=== PATIENT | male | born 1960 | race Two or more races ===

== ENCOUNTER 2017-02-01 06:29 | Observation (INO) | payer OTHER ==
[2017-02-01] MEDS ORDERED: NS 0.9% 1000 ML* 1,000 ML IV ONE ×2 (07:14→08:03)
[2017-02-01] MEDS ORDERED: Ondansetron INJ* 2 MG/ML VIAL IV ONE (07:17)
[2017-02-01 07:19] LABS: Hematocrit 44 % (42-52); Hemoglobin 14.8 g/dl (14.0-18.0); Mean Corpuscular HGB Conc 33 g/dl (31-36); Mean Corpuscular Hemoglobin 31 pg (27-31); Mean Corpuscular Volume 92 fL (80-94); Mean Platelet Volume 8 um3 (7.4-10.4); Red Blood Count 4.85 10^6/ul (4.0-5.4); Red Cell Distribution Width 14 % (10.5-15); White Blood Count 8.2 10^3/ul (3.5-10.8)
[2017-02-01] MEDS: Nitroglycerin TAB 0.4 MG* 0.4 MG TAB SL ONE ×3 (07:22→07:48)
[2017-02-01] MEDS ORDERED: Morphine INJ* 2 MG/ML 1 ML SYRINGE IV ONE (07:25)
[2017-02-01] MEDS ORDERED: Morphine INJ* 2 MG/ML 1 ML SYRINGE ONE (07:26)
[2017-02-01 07:31] LABS: Albumin 4.4 g/dL (3.2-5.2); BUN/Creatinine Ratio 19.4 (8-20); EGFR African American 108.1 (>60); Globulin 3.6 g/dL (2-4); Potassium 3.4 mmol/L (3.5-5.0); Total Bilirubin 0.6 mg/dL (0.2-1.0)
[2017-02-01] MEDS ORDERED: Aspirin Low Dose CHEW TAB* 81 MG PO ONE (07:31)
[2017-02-01 07:41] LABS: TSH (Thyroid Stimulating Horm) 1.65 mcIU/mL (0.34-5.60)
[2017-02-01] MEDS ORDERED: Morphine INJ* 4 MG/ML 1 ML SYRINGE IV ONE (08:00)
[2017-02-01] MEDS ORDERED: Iohexol 350* (CONTRAST) 500 ML MDV IV ONE (08:07)
--- NOTE | 2017-02-01 08:24 | RAD ---
INDICATION: Chest pain. COMPARISON: Comparison is made with a prior study from October 23 2011. TECHNIQUE: A portable view of the chest was obtained. FINDINGS: Cardiac and mediastinal contours appear to be within normal limits. The lungs are underinflated and clear. No pleural effusion is seen. IMPRESSION: NO EVIDENCE FOR ACUTE DISEASE.
[2017-02-01] MEDS ORDERED: Morphine INJ* 2 MG/ML 1 ML SYRINGE IV PRN (08:46)
[2017-02-01] MEDS ORDERED: Al Hydrox/Mg Hydrox/Simet LIQ* 30 ML UDC PO PRN (08:58)
[2017-02-01] MEDS ORDERED: amLODIPine TAB* 5 MG PO SCH (09:00)
[2017-02-01] MEDS ORDERED: Enoxaparin(*) 40 MG/0.4 ML SYR SUBCUT SCH (09:00)
[2017-02-01] MEDS ORDERED: Losartan TAB* 25 MG PO SCH (09:00)
[2017-02-01] MEDS ORDERED: Omeprazole CAP* 20 MG PO SCH (09:00)
[2017-02-01] MEDS ORDERED: Ondansetron INJ* 2 MG/ML VIAL IV SCH (09:00)
[2017-02-01] MEDS ORDERED: Atorvastatin* 10 MG TAB PO SCH (09:00)
--- NOTE | 2017-02-01 09:05 | RAD ---
INDICATION: Chest pain. Evaluate for aortic dissection. COMPARISON: Chest x-ray February 01, 2017 TECHNIQUE: Axial source images were obtained from the thoracic inlet to the hemidiaphragms following administration of [address] angiographic technique was utilized. Coronal and sagittal reconstructed images were acquired. CHEST FINDINGS: Neck/thyroid: The visualized neck to include the thyroid appear normal. Chest wall: There are no acute abnormalities of the bony thorax or chest wall. There is no supraclavicular, infraclavicular, or axillary lymphadenopathy. Lungs : There are no pulmonary parenchymal masses or infiltrates. The pulmonary interstitium appears normal. There are no endobronchial lesions. Cardiomediastinal structures: There is no CT evidence of acute pulmonary embolic disease. The heart is normal in size. There is no pericardial effusion. There is no evidence of aortic aneurysm or dissection. There is no mediastinal or hilar adenopathy. The esophagus appears normal. Pleura : There are no pleural-based masses or effusions. Other: Limited views the upper abdomen show hepatic steatosis.. IMPRESSION: NO CT EVIDENCE OF AORTIC ANEURYSM OR DISSECTION. NO ACTIVE DISEASE OF THE CHEST.
[2017-02-01] MEDS ORDERED: Hydrochlorothiazide TAB* 25 MG PO SCH (09:30)
[2017-02-01] MEDS ORDERED: cloNIDine 0.3 MG PATCH* 0.3 MG/24 HR 7 DAY PATCH TRANSDERM SCH (09:30)
[2017-02-01] MEDS ORDERED: Ketorolac INJ* 15 MG/ML 1 ML VIAL IV PUSH ONE (10:33)
[2017-02-01 11:20] LABS: T4 6.87 mcg/mL (6.09-12.23)
[2017-02-01] MEDS: Ondansetron INJ* 2 MG/ML VIAL IV SCH ×2 (12:14→16:13)
--- NOTE | 2017-02-01 12:22 | HP ---
CC: Osman Martines MD HISTORY AND PHYSICAL/DISCHARGE SUMMARY: DATE OF ADMISSION: 02/01/17 PCP: Osman Martines MD CHIEF COMPLAINT: Chest pain. HISTORY OF PRESENT ILLNESS: Mr. Holm is a 57-year-old male with past medical history of hypertension, hyperlipidemia, and obesity, who presents to the hospital with chest pain. The patient states he was in his usual state of health yesterday, had some steak and rice for dinner, went to bed without any issues, woke up at 5:30 this morning with a sharp pressure-like chest pain on the left side of the chest. He states it radiated to the middle of the chest and the throat. He was concerned and thus ended up calling EMS. He took his car and drove himself to the emergency department. He did not take anything at home for it. Here in the ED, the patient received full dose aspirin, morphine, and nitroglycerin. After these interventions, he states his pain seemed to be a little bit better down from a 9/10 to a 5-6/10. Here in the hospital, he had some nausea and vomiting, has been feeling some diaphoresis too. He states the chest pain improved a bit with throwing up. He feels like it is a bit worse with deep breathing. It is not reproducible on palpation. He is not sure if it is any worse with exertion. Denies any history of a pain like this. He states he has had indigestion in the past with black beans; however, it does not feel like this. Denies any recent fever, chills, abdominal pain. He has been taking good p.o. No diarrhea, constipation, dysuria, hematuria, hematochezia, or melena. PAST MEDICAL HISTORY: Hypertension, hyperlipidemia, obesity. PAST SURGICAL HISTORY: None. HOME MEDICATIONS: 1. Losartan/HCTZ 100-12.5 one tablet by mouth daily. 2. Atenolol 50 mg by mouth daily. 3. Atorvastatin 10 mg by mouth daily. 4. Amlodipine 10 mg by mouth daily. 5. Clonidine patch 0.3 mg transdermal weekly. ALLERGIES: The patient reports no known drug allergies. FAMILY HISTORY: Significant for father with kidney disease. SOCIAL HISTORY: The patient states he used to smoke 1 to 2 cigarettes a day, but quit 15 years ago, will drink up to 3-4 shots a night on the weekends. Occasionally will have a beer during the week. Denies any illicit drug use. REVIEW OF SYSTEMS: A 12-point review of systems is negative except for that as noted in the HPI. PHYSICAL EXAMINATION GENERAL: The patient is a middle-aged man, lying in bed, in mild distress. VITAL SIGNS ON ADMISSION: Temperature 97.3, heart rate of 66, respiratory rate of 16, O2 saturation 100% on room air, blood pressure 172/102, which has improved to 127/72. HEENT: Head normocephalic, atraumatic. Eyes: Pupils are equal, round, and reactive to light and accommodation. Anicteric sclerae. ENT: Moist mucous membranes. No oropharyngeal erythema. LUNGS: Clear to auscultation bilaterally. No wheezes, rales, or rhonchi. CARDIOVASCULAR: Regular rate and rhythm. S1, S2 present. No murmurs, gallops , or rubs. ABDOMEN: Soft, nontender, nondistended. Bowel sounds positive. EXTREMITIES: No cyanosis, clubbing, or edema. NEUROLOGIC: The patient is alert and oriented x3. No focal neurological deficits. SKIN: Warm, dry, and well perfused. DIAGNOSTIC STUDIES/LAB DATA: White blood cell count of 8.2, hematocrit of 44, platelets of 226. INR of 0.89. D-dimer is pending. Sodium 138, potassium 3.4 , chloride of 102, carbon dioxide 25, BUN of 18, creatinine 0.93, glucose of 117 , lactic acid of 1.3. LFTs within normal limits. CK and CK-MB within normal limits. Troponin of 0.00. TSH of 1.65. EKG, personally reviewed, shows normal sinus rhythm with some left ventricular hypertrophy. Chest x-ray, personally reviewed, shows no acute disease. CTA of the chest was done, no significant findings on my read, but final read is pending. ASSESSMENT AND PLAN: Chest pain in a 57-year-old male with past medical history of hypertension, hyperlipidemia, obesity. 1. Chest pain. Some concern for cardiac etiology with the patient's risk factors. Initial troponin was negative. We have another one drawn in less than an hour. If this remains negative, we will proceed with nuclear cardiac stress test. EKG showed no significant changes indicating ischemia. CTA of the chest is pending as well as a D-dimer. PE is certainly a possibility; however, the patient is not hypoxic or not particularly tachypneic. Could be GI related, we will write the patient for a PPI and some Maalox. 2. Hypertension. Continue the patient's home cardiac medications. 3. Hyperlipidemia. Continue the patient's home statin. 4. DVT prophylaxis: Lovenox subcu. 5. Code status: The patient is a full code. TIME SPENT: Total time spent on this admission was 40 minutes with over half the time spent [id number] with the patient counseling and coordinating care. ADDENDUM: Patient was monitored over the course of the day. Continued to have chest pain with normal troponins and negative stress test. Seemed to respond well to Toradol with improvement in his pain. Likely MSK in origin, was discharged home with rx for Ibuprofen in addition to home medications. F/U with PCP as an outpatient. [id number]/CPS #: [id number] MTDD
[2017-02-01 13:29] LABS: Urine Bacteria Absent (Absent); Urine Bilirubin Negative (Negative); Urine Glucose Negative (Negative); Urine Nitrite Negative (Negative)
--- NOTE | 2017-02-01 15:54 | ED ---
Mcihael Vargas Billy, scribed for Suman Francois MD on 02/01/17 at 0717 . HPI Chest Pain - HPI Summary HPI Summary: Patient is a 57 year-old male coming to [facility] for evaluation of sudden onset left-sided chest pain when he woke up this morning at 0530. Pain is non- radiating. He also reports shortness of breath, nausea, diaphoresis. No previous cardiac history other than hypertension and hypercholesterolemia ( controlled by medication). No significant family history of CT in family members at this age. - History of Current Complaint Chief Complaint: EDChestPainROMI Time Seen by Provider: 02/01/17 07:10 Hx Obtained From: Patient Onset/Duration: Started Hours Ago Time of Onset: 05:30 Timing: Constant Initial Severity: Moderate Current Severity: Moderate Pain Intensity: 9 Pain Scale Used: 0-10 Numeric Chest Pain Location: Left Anterior Chest Pain Radiates: No Associated Signs and Symptoms: Positive: Chest Pain, Shortness of Breath, Diaphoresis, Nausea - Allergy/Home Medications Allergies/Adverse Reactions: Allergies Allergy/AdvReac Type Severity Reaction Status Date / Time No Known Allergies Allergy Verified 02/01/17 06:47 Home Medications: Home Medications Amlodipine Besylate [Norvasc 10 mg tab] 10 mg PO DAILY 02/01/17 [History Confirmed 02/01/17] Atorvastatin* [Lipitor 10 MG*] 10 mg PO DAILY 02/01/17 [History Confirmed ] Losartan Potassium & Hydrochlo [Hyzaar 100/12.5 mg] 1 tab PO DAILY 02/01/17 [ History Confirmed 02/01/17] cloNIDine 0.3 MG PATCH* [Zwefpdqp-Wis-1 0.3 mg Patch*] 1 patch TRANSDERM WEEKLY 02/01/17 [History Confirmed 02/01/17] PMH/Surg Hx/FS Hx/Imm Hx Endocrine/Hematology History: Denies: Hx Diabetes, Hx Thyroid Disease Cardiovascular History: Reports: Hx Hypercholesterolemia, Hx Hypertension Respiratory History: Denies: Hx Asthma, Hx Chronic Obstructive Pulmonary Disease (COPD) GI History: Denies: Hx Ulcer - Immunization History Date of Tetanus Vaccine: utd Date of Influenza Vaccine: none Infectious Disease History: No Infectious Disease History: Denies: Hx Hepatitis, Hx Human Immunodeficiency Virus (HIV), Traveled Outside the [place] in Last 30 Days - Family History Known Family History: Positive: Hypertension Negative: Cardiac Disease - Social History Alcohol Use: Weekly Alcohol Amount: 2-3 Substance Use Type: Reports: None Smoking Status (MU): Former Smoker Review of Systems Positive: Skin Diaphoresis Positive: Chest Pain Positive: Shortness Of Breath Positive: Nausea All Other Systems Reviewed And Are Negative: Yes Physical Exam - Summary Physical Exam Summary: VITAL SIGNS: Reviewed. GENERAL: Patient is a well developed and nourished male who is clammy and diaphoretic. Patient is not in any acute respiratory distress. HEAD AND FACE: No signs of trauma. No ecchymosis, hematomas or skull depressions. No sinus tenderness. EYES: PERRLA, EOMI x 2, No injected conjunctiva, no nystagmus. EARS: Hearing grossly intact. Ear canals and tympanic membranes are within normal limits. MOUTH: Oropharynx within normal limits. NECK: Supple, trachea is midline, no adenopathy, no JVD, no carotid bruit, no c- spine tenderness, neck with full ROM. CHEST: Symmetric, no tenderness at palpation LUNGS: Clear to auscultation bilaterally. No wheezing or crackles. CVS: Regular rate and rhythm, S1 and S2 present, no murmurs or gallops appreciated. ABDOMEN: Soft, non-tender. No signs of distention. No rebound no guarding, and no masses palpated. Bowel sounds are normal. EXTREMITIES: FROM in all major joints, no edema, no cyanosis or clubbing. NEURO: Alert and oriented x 3. No acute neurological deficits. Speech is normal and follows commands. SKIN: Dry and warm Triage Information Reviewed: Yes Vital Signs On Initial Exam: Initial Vitals Temp Pulse Resp BP Pulse Ox 97.3 F 66 16 175/102 100 02/01/17 06:30 02/01/17 06:30 02/01/17 06:30 02/01/17 06:30 02/01/17 06:30 Vital Signs Reviewed: Yes - Olar Coma Scale Coma Scale Total: 15 Diagnostics - Vital Signs Vital Signs Temp Pulse Resp BP Pulse Ox 02/01/17 07:13 100 02/01/17 06:43 60 99 02/01/17 06:42 174/98 02/01/17 06:41 98.5 F 56 16 174/98 100 02/01/17 06:30 97.3 F 66 16 175/102 100 - Laboratory Result Diagrams: 02/01/17 06:45 02/01/17 06:45 Lab Statement: Any lab studies that have been ordered have been reviewed, and results considered in the medical decision making process. - Radiology CXR Xray Interpretation: No Acute Changes Radiology Interpretation Completed By: Radiologist - CT CTA chest CT Interpretation Completed By: Radiologist - NO CT EVIDENCE OF AORTIC ANEURYSM OR DISSECTION. NO ACTIVE DISEASE OF THE CHEST. - EKG 0716 EKG Interpretation: NSR 62 bpm, no STEMI 0642 EKG Interpretation: Sinus bradycardia 58 bpm, no STEMI Re-Evaluation - Re-Evaluation First Eval Re-Evaluation Time: 08:00 Change: Unchanged Comment: The patient is still in pain after morphine. Chest Pain Course/Dx - Course Assessment/Plan: Patient is a 57 year-old male coming to [facility] for evaluation of sudden onset left-sided chest pain when he woke up this morning at 0530. Pain is non-radiating. He also reports shortness of breath, nausea, diaphoresis. No previous cardiac history other than hypertension and hypercholesterolemia (controlled by medication). No significant family history of CT in family members at this age. Labs WNL except for potassium of 3.4 and glucose of 117. Troponin is 0.00. In the ED course, the patient was given ASA, NTG, and morphine for the chest pain. EKG shows no ST elevations. However, I am very concerned for acute coronary syndrome. The patient was hypotensive for which he was given IV fluids. The patient reported that the pain is radiating into his back and is uncomfortable despite the morphine. Therefore, I ordered CTA chest to rule out dissection. The CTA chest shows no CT evidence of aortic aneurysm or dissection. At this point, I discussed my physical exam and lab findings with Dr. Snell who accepted the patient for admission. He is hemodynamically stable, A&Ox3. - Chest Pain Differential Diagnosis/HQI/PQRI: Acute CT, ACS, Angina, Aortic Aneurysm, CHF, Chest Wall, GI Disease - Diagnoses Provider Diagnoses: chest pain r/o acute coronary syndrome - Provider Notifications Discussed Care Of Patient With: Dr. Snell (hospitalist) at 0814: accepts admission. Discharge - Discharge Plan Condition: Stable Disposition: ADMITTED TO [facility] The documentation as recorded by the Michael larson Billy accurately reflects the service I personally performed and the decisions made by me, Suman Francois MD.
[2017-02-01 16:03] VITALS: BP 150/95
--- NOTE | 2017-02-01 16:14 | RAD ---
Edited for charges. INDICATION: Chest pain COMPARISON: None TECHNIQUE: A single day SPECT protocol was utilized. Rest images were acquired following the intravenous injection of 10.7 millicuries of technetium 99m tetrofosmin. Exercise stress images were acquired following the intravenous administration of 25.7 millicuries of technetium 99m tetrofosmin. The patient was exercised to a peak heart rate of 144 which is 88 of age predicted maximum. FINDINGS: There are no defects of the stress-induced or fixed nature. There is probable mild apical thinning. The cardiac chamber size is normal. There are no wall motion abnormalities. The ejection fraction is calculated at 67 percent during stress. IMPRESSION: SUSPECT MILD APICAL THINNING, OTHERWISE NEGATIVE. ASSESSMENT: LOW-RISK Based on imaging criteria from ACC/AHA 2002 Guideline Update for the Management of Patients With Chronic Stable Angina Table 23. Noninvasive Risk Stratification. MTDD
[2017-02-02] MEDS ORDERED: Aspirin EC Low Dose* 81 MG TAB.EC PO SCH (09:00)
[2017-02-02] MEDS ORDERED: Atenolol TAB* 50 MG PO SCH (09:00)
== END 2017-02-01 16:55 | disposition home or self-care (01) ==
LOC: ED 06:29 → MEDTELE 08:17
PROVIDERS: ADMIT Hospitalist; ATTEND Hospitalist
DX: R07.9 Chest pain, unspecified (principal); I10 Essential (primary) hypertension; E78.5 Hyperlipidemia, unspecified; E66.9 Obesity, unspecified; R94.31 Abnormal electrocardiogram [ECG] [EKG]; R06.02 Shortness of breath; Z79.899 Other long term (current) drug therapy; Z87.891 Personal history of nicotine dependence
CPT/HCPCS: 36415; 71010; 71275; 78452; 80053; 81003; 81015; 82550; 82553; 83605; 83735; 83874; 83880; 84436; 84443; 84484; 85025; 85379; 85610; 85730; 93005; 93017; 96361; 96372; 96374; 96375; 96376; 99283; A9270-GY; A9502; G0378; J1650; J1885; J2270; J2405; Q9967

== ENCOUNTER 2017-10-01 10:30 | Day surgery (SDC) | payer OTHER ==
[~2017-10-01 10:30] MED LIST: Acetaminophen TAB* 325 MG PO PRN; Buffered Lidocaine 0.9% SYRIN* 5 ML/SYR SYRINGE INTRADERM ONE
[2017-10-01] MEDS ORDERED: Midazolam* 1 MG/ML 2 ML VIAL (2 MG) ONE (12:11)
[2017-10-01] MEDS ORDERED: Lidocaine 1% MPF* 2 ML VIAL ONE (12:14)
[2017-10-01] MEDS ORDERED: Ketorolac 0.5% OPHTH (NF) 0.5 % 5 ML BTL ONE (12:14)
[2017-10-01] MEDS ORDERED: Tropicamide 1% OPTH.SOL* BTL ONE (12:14)
[2017-10-01] MEDS ORDERED: Neomycin/Polymy/Dex OPHTH.OIN* 3.5 GM ONE (12:14)
[2017-10-01] MEDS ORDERED: Phenylephrine 2.5% OPTH.SOL* 2 ML BTL ONE (12:14)
[2017-10-01] MEDS ORDERED: Tetracaine 0.5% OPTH.SOL 4 ML* 1 DROP BTL ONE (12:14)
[2017-10-01] MEDS ORDERED: Cyclopentolate 1% OPTH.SOL* 2 ML BTL ONE (12:14)
[2017-10-01 12:38] VITALS: BP 144/94
--- NOTE | 2017-10-01 16:48 | OP ---
DATE OF OPERATION/DATE OF DICTATION: 10/01/2017 - [facility] DATE OF : 1960. SURGEON: Dr. Errol Chin. SENIOR FRONT END WEB DEVELOPER: None. ANESTHESIA: Topical with intravenous sedation. PRE-OP DIAGNOSIS: Cataract, left eye. POST-OP DIAGNOSIS: Cataract, left eye. OPERATIVE PROCEDURE: Phacoemulsification and cataract extraction with posterior chamber intraocular lens implant, left eye. COMPLICATIONS: None. BLOOD LOSS: None. DESCRIPTION OF PROCEDURE: The patient was brought to the operating room and received a small amount of intravenous sedation. A drop of Tetracaine was placed in his left eye. He was prepped and draped in the usual sterile fashion for ophthalmic surgery and attention was directed to the left eye where a speculum was placed. A paracentesis was created at the 5 o'clock position and 0.1 cc of 1 percent preservative-free Lidocaine was injected into the anterior chamber followed by DisCoVisc. The eye was digitally stabilized while a 2.75 mm keratome was used to create a triplanar clear corneal incision at the 3 o'clock position. A continuous curvilinear capsulorrhexis was created with a cystotome and Utrata forceps. BSS on a cannula was used to hydrodissect the lens from the capsule. Phacoemulsification was performed in a [id number] technique to create four fragments which were removed. Residual cortical material was removed with irrigation and aspiration. DisCoVisc was used to inflate the capsular bag and an AUOOTO 21.5 diopter lens was folded and inserted into the capsular bag. DisCoVisc was removed using irrigation and aspiration. BSS on a cannula was used to hydrate the corneal stroma and seal the wound. At the end of the case the pupil was round and the lens was centered. The eye was of normal pressure and the wound was water tight. The speculum was removed and topical Maxitrol ointment was placed on the surface of the eye. The eye was closed, patched and shielded and the patient was sent to the recovery room in stable condition with post operative instructions and follow-up appointment given. [id number]/CPS #: [id number] MTDD
== END 2017-10-01 12:45 | disposition home or self-care (01) ==
LOC: OREAST 10:30
PROVIDERS: ATTEND Ophthalmology
DX: H25.032 Anterior subcapsular polar age-related cataract, left eye (principal); I10 Essential (primary) hypertension; E78.00 Pure hypercholesterolemia, unspecified
CPT/HCPCS: A9270-GY; J2250; V2632

== ENCOUNTER 2017-10-08 08:15 | Day surgery (SDC) | payer OTHER ==
[2017-10-08] MEDS ORDERED: Midazolam* 1 MG/ML 2 ML VIAL (2 MG) ONE (08:40)
[2017-10-08] MEDS ORDERED: fentaNYL* 50 MCG/ML 2 ML VIAL (100 MCG VIAL) ONE (08:40)
[2017-10-08 09:31] VITALS: BP 133/96
--- NOTE | 2017-10-08 09:42 | OP ---
DATE OF OPERATION/DATE OF DICTATION: 10/08/2017 - [facility] DATE OF : 1960. SURGEON: Dr. Errol Chin. MATRIX DRIER TENDER: None. ANESTHESIA: Topical with intravenous sedation. PRE-OP DIAGNOSIS: Cataract, right eye. POST-OP DIAGNOSIS: Cataract, right eye. OPERATIVE PROCEDURE: Phacoemulsification and cataract extraction with posterior chamber intraocular lens implant, right eye. COMPLICATIONS: None. BLOOD LOSS: None. DESCRIPTION OF PROCEDURE: The patient was brought to the operating room and received a small amount of intravenous sedation. A drop of Tetracaine was placed in his right eye. He was prepped and draped in the usual sterile fashion for ophthalmic surgery and attention was directed to the right eye where a speculum was placed. A paracentesis was created at the 11 o'clock position and 0.1 cc of 1 percent preservative-free Lidocaine was injected into the anterior chamber followed by DisCoVisc. The eye was digitally stabilized while a 2.75 mm keratome was used to create a triplanar clear corneal incision at the 9 o'clock position. A continuous curvilinear capsulorrhexis was created with a cystotome and Utrata forceps. BSS on a cannula was used to hydrodissect the lens from the capsule. Phacoemulsification was performed in a divide-and- conquer technique to create four fragments which were removed. Residual cortical material was removed with irrigation and aspiration. DisCoVisc was used to inflate the capsular bag and an AUOOTO 21.5 diopter lens was folded and inserted into the capsular bag. DisCoVisc was removed using irrigation and aspiration. BSS on a cannula was used to hydrate the corneal stroma and seal the wound. At the end of the case the pupil was round and the lens was centered. The eye was of normal pressure and the wound was water tight. The speculum was removed and topical Maxitrol ointment was placed on the surface of the eye. The eye was closed, patched and shielded and the patient was sent to the recovery room in stable condition with post operative instructions and follow-up appointment given. [id number]/CPS #: [id number] MTDD
[2017-10-08] MEDS ORDERED: Neomycin/Polymy/Dex OPHTH.OIN* 3.5 GM ONE (13:51)
[2017-10-08] MEDS ORDERED: Tetracaine 0.5% OPTH.SOL 4 ML* 1 DROP BTL ONE (13:51)
[2017-10-08] MEDS ORDERED: Lidocaine 1% MPF* 2 ML VIAL ONE (13:51)
[2017-10-08] MEDS ORDERED: Ketorolac 0.5% OPHTH (NF) 0.5 % 5 ML BTL ONE (13:51)
[2017-10-08] MEDS ORDERED: Cyclopentolate 1% OPTH.SOL* 2 ML BTL ONE (13:51)
[2017-10-08] MEDS ORDERED: Tropicamide 1% OPTH.SOL* BTL ONE (13:51)
[2017-10-08] MEDS ORDERED: Phenylephrine 2.5% OPTH.SOL* 2 ML BTL ONE (13:51)
== END 2017-10-08 09:35 | disposition home or self-care (01) ==
LOC: OREAST 08:15
PROVIDERS: ATTEND Ophthalmology
DX: H25.11 Age-related nuclear cataract, right eye (principal); I10 Essential (primary) hypertension; E78.5 Hyperlipidemia, unspecified; Z87.891 Personal history of nicotine dependence
CPT/HCPCS: A9270-GY; J2250; J3010; V2632

== ENCOUNTER 2018-02-22 11:04 | Emergency (ER) | payer OTHER ==
[2018-02-22 11:09] VITALS: BP 162/104
[2018-02-22] MEDS ORDERED: Ketorolac INJ* 60 MG/2 ML VIAL IM ONE (12:31)
--- NOTE | 2018-02-22 13:09 | RAD ---
INDICATION: Superior lateral left knee pain since an injury 2 days earlier COMPARISON: None TECHNIQUE: 5 view radiograph of the left knee. FINDINGS: Mild degenerative changes on the AP view include slight height loss of the medial compartment. On the lateral view there is a moderate size joint effusion. On the sunrise view the patella is displaced laterally relative to the femoral condyles and intercondylar groove. There is questionable lucency along the medial posterior margin of the patella. IMPRESSION: 1. Small to moderate suprapatellar joint effusion without definite acute bony abnormality. 2. 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 Please correlate to history and physical examination. If the patient's symptoms persist, follow-up imaging is recommended.
--- NOTE | 2018-02-22 14:21 | ED ---
Jose Vargas Julia, scribed for Suman Francois MD on 02/22/18 at 1149 . Lower Extremity - HPI Summary HPI Summary: This patient is a 58 year old M presenting to [facility] with a chief complaint of lateral left knee pain for the past two days after he heard a pop after missing a step. Patient is unable to ambulate without pain since. Pain is 6/10 in severity. - History of Current Complaint Chief Complaint: EDExtremityLower Stated Complaint: LT KNEE INJURY Time Seen by Provider: 02/22/18 11:32 Hx Obtained From: Patient Mechanism Of Injury: Twisted Onset of Pain: Immediate, Days Pain Intensity: 6 Pain Scale Used: 0-10 Numeric Timing: Constant Location: Is Discrete @ - left knee Associated Signs And Symptoms: Positive: Swelling Aggravating Factor(s): Ambulation Able to Bear Weight: Yes - Allergies/Home Medications Allergies/Adverse Reactions: Allergies Allergy/AdvReac Type Severity Reaction Status Date / Time No Known Allergies Allergy Verified 10/08/17 08:39 PMH/Surg Hx/FS Hx/Imm Hx Endocrine/Hematology History: Denies: Hx Diabetes, Hx Thyroid Disease Cardiovascular History: Reports: Hx Hypercholesterolemia, Hx Hypertension, Other Cardiovascular Problems/Disorders - HLD Denies: Hx Angina, Hx Coronary Artery Disease, Hx Myocardial Infarction, Hx Valvular Heart Disease Respiratory History: Denies: Hx Asthma, Hx Chronic Obstructive Pulmonary Disease (COPD), Hx Pulmonary Embolism, Hx Seasonal Allergies, Hx Sleep Apnea, Other Respiratory Problems/Disorders GI History: Reports: Hx Gastroesophageal Reflux Disease - possible Denies: Hx Ulcer, Other GI Disorders History: Denies: Hx Chronic Renal Failure, Hx Dialysis, Hx Kidney Stones, Other Problems/Disorders Musculoskeletal History: Denies: Hx Arthritis, Other Musculoskeletal History Sensory History: Reports: Hx Cataracts - bilateral cataracts Denies: Hx Contacts or Glasses, Hx Glaucoma, Hx Hearing Aid Opthamlomology History: Reports: Hx Cataracts - bilateral cataracts Denies: Hx Contacts or Glasses, Hx Glaucoma Neurological History: Denies: Hx Headaches, Hx Migraine, Hx Seizures, Hx Transient Ischemic Attacks (TIA), Other Neuro Impairments/Disorders Psychiatric History: Denies: Hx Anxiety, Hx Depression - Surgical History Hx Anesthesia Reactions: No - never had surgery - Immunization History Date of Tetanus Vaccine: utd Date of Influenza Vaccine: none Infectious Disease History: No Infectious Disease History: Denies: Hx Hepatitis, Hx Human Immunodeficiency Virus (HIV), Traveled Outside the [place] in Last 30 Days - Family History Known Family History: Positive: Hypertension Negative: Cardiac Disease - Social History Alcohol Use: Weekly Alcohol Amount: 2-3 Substance Use Type: Reports: None Smoking Status (MU): Former Smoker Review of Systems Positive: Myalgia, Edema All Other Systems Reviewed And Are Negative: Yes Physical Exam - Summary Physical Exam Summary: VITAL SIGNS: Reviewed. GENERAL: Patient is a well-developed and nourished male who is lying comfortable in the stretcher. Patient is not in any acute respiratory distress. HEAD AND FACE: No signs of trauma. No ecchymosis, hematomas or skull depressions. No sinus tenderness. EYES: PERRLA, EOMI x 2, No injected conjunctiva, no nystagmus. EARS: Hearing grossly intact. Ear canals and tympanic membranes are within normal limits. MOUTH: Oropharynx within normal limits. NECK: Supple, trachea is midline, no adenopathy, no JVD, no carotid bruit, no c- spine tenderness, neck with full ROM. CHEST: Symmetric, no tenderness at palpation LUNGS: Clear to auscultation bilaterally. No wheezing or crackles. CVS: Regular rate and rhythm, S1 and S2 present, no murmurs or gallops appreciated. ABDOMEN: Soft, non-tender. No signs of distention. No rebound no guarding, and no masses palpated. Bowel sounds are normal. EXTREMITIES: no cyanosis or clubbing. Left knee swelling and tenderness with decreased ROM due to pain NEURO: Alert and oriented x 3. No acute neurological deficits. Speech is normal and follows commands. SKIN: Dry and warm Triage Information Reviewed: Yes Vital Signs On Initial Exam: Initial Vitals Temp Pulse Resp BP Pulse Ox 98 F 67 14 162/104 100 02/22/18 11:07 02/22/18 11:07 02/22/18 11:07 02/22/18 11:07 02/22/18 11:07 Vital Signs Reviewed: Yes Diagnostics - Vital Signs Vital Signs Temp Pulse Resp BP Pulse Ox 02/22/18 11:07 98 F 67 14 162/104 100 - Laboratory Lab Statement: Any lab studies that have been ordered have been reviewed, and results considered in the medical decision making process. - Radiology L Knee XR Radiology Interpretation Completed By: Radiologist - 1. Small to moderate suprapatellar joint effusion without definite acute bony abnormality. 2. 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 Please correlate to history and physical examination. If the patient's symptoms persist, follow-up imaging is recommended. ED Physician has reviewed this report. Lower Extremity Course/Dx - Course Assessment/Plan: 58-year-old male with a chief complaint of having knee pain. Patient denies any history of trauma or heavy lifting. Patient reports that he felt a pop in the left knee consistent the patient is having pain and swelling. X-ray of left knee Impression: Is small to moderate suprapatellar joint effusion without definite acute bony abnormality. consistent with patellar tracking the symptoms. The patient will be placed in a knee immobilizer and discharged home with follow-up with orthopedics. Patient was given Toradol for the pain. I discussed all the findings and test results with the patient. Patient was instructed to return to the emergency room immediately if any of the symptoms return or worsens. Plan of care was discussed with the patient and understands and agrees. All questions were answered at patient satisfaction. There were no further complaints or concerns. Lung exam before discharge: CTA B /L. Good air exchange. No wheezing or crackles heard. CVS: S1 and S2 present. No murmurs appreciated. Patient is alert and oriented x 3. Patient is hemodynamically stable. Patient will be discharged home with follow up PCP in the next 2-3 days - Diagnoses Differential Diagnosis/HQI/PQRI: Positive: Bursitis, Contusion, Sprain, Strain, Tendonitis Provider Diagnoses: Knee pain Discharge - Sign-Out/Discharge Documenting (check all that apply): Discharge/Admit/Transfer - Discharge Plan Condition: Stable Disposition: HOME Prescriptions: Naproxen [Naproxen 500 mg tab] 500 mg PO BID #30 tablet Patient Education Materials: Knee Pain (ED) Referrals: Saima Rosales NP [Primary Care Provider] - 3 Days Additional Instructions: FOLLOW UP WITH YOUR PRIMARY CARE PROVIDER WITHIN ONE WEEK FOR HIGH BLOOD PRESSURE NOTED TODAY. RETURN TO THE EMERGENCY DEPARTMENT FOR ANY WORSENING OR NEW SYMPTOMS. - Billing Disposition and Condition Condition: STABLE Disposition: Home The documentation as recorded by the Jose larson Julia accurately reflects the service I personally performed and the decisions made by , Suman Francois MD.
== END 2018-02-22 14:07 | disposition home or self-care (01) ==
LOC: ED 11:04
DX: M25.562 Pain in left knee (principal); X50.9XXA Other and unspecified overexertion or strenuous movements or postures, initial encounter; Y92.9 Unspecified place or not applicable; E78.00 Pure hypercholesterolemia, unspecified; I10 Essential (primary) hypertension; E78.5 Hyperlipidemia, unspecified; Z87.891 Personal history of nicotine dependence
CPT/HCPCS: 96372; 99282; J1885